=== PATIENT | female | born 2005 | race Caucasian/White ===

== ENCOUNTER 2024-01-31 14:21 | Emergency (ER) | payer MEDICAID ==
[~2024-01-31] VITALS: Ht 165.1 cm; Wt 103.5 kg
[2024-01-31 14:26] VITALS: BP 151/88; TEMP 98.3
[2024-01-31] MEDS ORDERED: albuterol 2.5 MG/3 ML nebule NEB ONE (14:40)
[2024-01-31] MEDS: ipratropium/albuterol 3ml nebule NEB STA (14:49)
[2024-01-31 14:50] VITALS: PULSE 104; RESP 16; O2SAT 97
[2024-01-31 14:55] VITALS: PULSE 19; RESP 16; O2SAT 97
[2024-01-31] MEDS: dexamethasone sod phosphate 10mg/ml inj PO STA (15:33)
[2024-01-31] MEDS ORDERED: PRED20TA PO (15:39)
== END 2024-01-31 17:34 | disposition home or self-care (01) ==
LOC: ER 14:22
DX: J45.901 Unspecified asthma with (acute) exacerbation (principal); Z88.1 Allergy status to other antibiotic agents; Z79.52 Long term (current) use of systemic steroids
CPT/HCPCS: 71045; 94640; 99283; J1100; 94760